=== PATIENT | female | born 1995 | race Two or more races ===

== ENCOUNTER 2024-07-27 19:22 | Emergency (ER) | payer BC ==
[2024-07-27] MEDS: Aspirin 81 MG Tab.Chew PO ONE (20:11)
[2024-07-27] MEDS: Sodium Chloride 0.9% 10 ML Syringe FLUSH PRN (20:18)
[2024-07-27 20:23] LABS: BASOPHILS PERCENT AUTO 0.8 % (0.0-1.0); EOSINOPHILS PERCENT AUTO 2.7 % (1.0-3.0); HEMATOCRIT 36.6 % (37.0-47.0); HEMOGLOBIN 11.8 g/dL (12.0-16.0); LYMPHOCYTES PERCENT AUTO 38.5 % (20.5-50.1); MEAN CORPUSCULAR HEMOGLOBIN 25.7 pg (27.0-34.0); MEAN CORPUSCULAR HGB CONC 32.2 g/dL (33.0-35.0); MEAN CORPUSCULAR VOLUME 79.7 fL (80-100); MONOCYTES PERCENT AUTO 7.3 % (2-8); NEUTROPHILS PERCENT AUTO 50.7 % (42.2-75.2); PLATELET COUNT,PLT 358 10^3/uL (150-450); RED BLOOD CELL COUNT 4.59 10^6/uL (4.2-5.4); WHITE BLOOD CELL COUNT,WBC 9.6 10^3/uL (5.0-10.0)
[2024-07-27 20:41] LABS: BILIRUBIN,URINE NEGATIVE (NEGATIVE); COLOR,URINE YELLOW (YELLOW); GLUCOSE,URINE NEGATIVE (NEGATIVE); KETONES,URINE TRACE (NEGATIVE); LEUKOCYTE ESTERASE,URINE NEGATIVE (NEGATIVE); NITRITE,URINE NEGATIVE (NEGATIVE); OCCULT BLOOD,URINE NEGATIVE (NEGATIVE); PROTEIN,URINE NEGATIVE (NEGATIVE); UROBILINOGEN,URINE 0.2 mg/dL (0.2-1.0)
[2024-07-27 20:42] LABS: APPEARANCE,URINE SLIGHTLY CLOUDY (CLEAR)
[2024-07-27 20:47] LABS: A/G RATIO 1.2; ALANINE AMINOTRANSFERASE,ALT 15 U/L (14-59); ALBUMIN 3.6 g/dL (3.4-5.0); ALKALINE PHOSPHATASE 90 U/L (46-116); ANION GAP 11.3 mEq/L (7-13); ASPARTATE AMNIOTRANSFERASE,AST 10 U/L (15-37); BILIRUBIN TOTAL 0.5 mg/dL (0.2-1.0); BLOOD UREA NITROGEN,BUN 20 mg/dL (7-18); BUN/CREATININE RATIO 23.3 (No establ ref range); CALCIUM 8.7 mg/dL (8.5-10.1); CARBON DIOXIDE,CO2 27 mmol/L (21-32); CHLORIDE,CL 106 mmol/L (98-107); CREATININE 0.86 mg/dL (0.55-1.02); EST CRCL DRUG DOSING (CG) 86.07 mL/min; GLUCOSE RANDOM 89 mg/dL (70-99); POTASSIUM,K 4.3 mmol/L (3.5-5.1); PROTEIN TOTAL,TP 6.5 g/dL (6.4-8.2); SODIUM,NA 140 mmol/L (136-145)
[2024-07-27 20:49] LABS: HCG QUALITATIVE,SERUM NEGATIVE (NEGATIVE)
[2024-07-27 20:50] LABS: ESTIMATED GFR 93 mL/min (>=60)
[2024-07-27 20:51] LABS: D-DIMER QUANTITATIVE < 100 ng/mL (0-400)
[2024-07-27 20:53] LABS: B-TYPE NATRIURETIC PEPTIDE,BNP 15 pg/ml (0-100)
[2024-07-27 21:00] LABS: PTT,PARTIAL THROMBOPLSTIN TIME 24.9 SEC (22.0-34.0)
[2024-07-27] MEDS: Take Home: Cyclobenzaprine 10 MG Tab, 4 Tab Pack PO ONE (21:36)
[2024-07-27] MEDS: Cyclobenzaprine 10 MG Tab PO ONE (21:44)
[2024-07-27] MEDS: Ketorolac 30 MG/ML SDV IM ONE (21:44)
== END 2024-07-27 22:41 | disposition home or self-care (01) ==
LOC: DL.ED 19:22
DX: S29.011A Strain of muscle and tendon of front wall of thorax, initial encounter (principal); M62.830 Muscle spasm of back; F17.290 Nicotine dependence, other tobacco product, uncomplicated; Z79.899 Other long term (current) drug therapy; Z88.5 Allergy status to narcotic agent; Z88.0 Allergy status to penicillin; X58.XXXA Exposure to other specified factors, initial encounter
CPT/HCPCS: 36415; 71045; 80053; 81003; 83735; 83880; 84484; 84703; 85025; 85379; 85610; 85730; 93005; 96372; 99285; A9270; J1885; 93010; 99284; J3490